=== PATIENT | male | born 1995 | race African-American/Black ===

== ENCOUNTER → 2022-08-02 18:38 | Outpatient (CLI) | payer BC, SELFPAY ==
[2022-08-02 19:43] LABS: Influenza A - CEPHEID Flu A NEGATIVE (NEGATIVE); Influenza B - CEPHEID Flu B NEGATIVE (NEGATIVE)
[2022-08-02 20:01] LABS: COVID-19 CEPHEID 4-PLEX PCR Negative (Negative)
== END ==
PROVIDERS: Visit Provider Physician Assistant Medical
DX: R05.9 Cough, unspecified (principal)
CPT/HCPCS: 0240U